=== PATIENT | female | born 1985 | race Two or more races ===

== ENCOUNTER 2019-05-15 11:19 | Emergency (ER) | payer OTHER ==
[~2019-05-15] VITALS: Ht 165.1 cm; Wt 57.2 kg
[~2019-05-15 11:19] MED LIST: TRINESSA TABLE1 EACH PO; TRINESSA1 TAB; TRINESSA1 TAB PO
[2019-05-15] MEDS ORDERED: MEDROLPACK PO (13:43)
[2019-05-15] MEDS ORDERED: ZYRTEC10 MG PO (13:43)
== END 2019-05-15 13:55 | disposition home or self-care (01) ==
LOC: ER 11:19
DX: L50.8 Other urticaria (principal)

== ENCOUNTER 2023-12-18 09:13 | Outpatient (CLI) | payer OTHER ==
[~2023-12-18 09:13] MED LIST changes: +MEDROLPACK PO; +ZYRTEC10 MG PO
== END 2023-12-18 09:41 | disposition home or self-care (01) ==
LOC: SONOGRAMA 09:13
PROVIDERS: ATTEND Obstetrics & Gynecology
DX: N84.0 Polyp of corpus uteri (principal); R10.2 Pelvic and perineal pain